=== PATIENT | male | born 1940 | race Caucasian/White ===

== ENCOUNTER 2019-09-17 09:31 | Inpatient (IN) ==
[2019-09-17] MEDS ORDERED: CLOPIDOGREL 300 MG TABLET PO STA (09:39)
[2019-09-17] MEDS ORDERED: HEPARIN 5,000 UNIT/1 ML VIAL IV ONE (09:39)
[2019-09-17] MEDS ORDERED: ASPIRIN 325 MG TABLET PO STA (09:39)
[2019-09-17] MEDS ORDERED: NITROGLYCERIN SL 0.4 MG TABLET SL PRN (09:39)
[2019-09-17] MEDS ORDERED: METOPROLOL TARTRATE 5 MG/5 ML VIAL IV STA (09:39)
[2019-09-17 09:42] VITALS: BP 144/110
[2019-09-17] MEDS ORDERED: CLOPIDOGREL 75 MG TABLET ONE (09:42)
[2019-09-17 09:45] LABS: Basophils # 0.1 10*3/uL (0.0-0.2); Basophils % 0.3 % (0.0-0.8); Eosinophils # 0.1 10*3/uL (0.0-0.87); Eosinophils % 0.6 % (0.00-10.9); Hematocrit 36.8 VOL% (42.0-52.0); Hemoglobin 12.1 GM/DL (14.0-18.0); Immature Granulocytes % 0.6 %; Immature Granulocytes Absolute 0.08 #; Lymphocytes # 2.3 10*3/uL (1.4-4.0); Lymphocytes % 15.7 % (21.2-54.2); Mean Corpuscular HGB Conc 32.9 GM/DL (32-36); Mean Corpuscular Volume 96.8 FL (87-102); Mean Platelet Volume 11.7 FL (9.6-12.0); Neutrophils % 72.8 % (38.7-73.9); Platelet Count 186 T/CUMM (130-400); Red Cell Distribution Width 12.9 % (9.3-17.3); White Blood Count 14.4 T/CUMM (4-12)
[2019-09-17] MEDS ORDERED: MIDAZOLAM 2 MG/2 ML VIAL ONE (09:52)
[2019-09-17] MEDS ORDERED: NITROGLYCERIN DRIP 50 MG/250 ML BOTTLE IV ONE (09:52)
[2019-09-17] MEDS ORDERED: fentaNYL 100 MCG/2 ML VIAL ONE (09:53)
[2019-09-17] MEDS ORDERED: LIDOCAINE 1% 20 ML VIAL ONE (09:53)
[2019-09-17] MEDS ORDERED: HEPARIN/NACL 0.9% 2 UNITS/ML 1,500 ML IV ONE (09:53)
[2019-09-17] MEDS ORDERED: HEPARIN 5,000 UNIT/1 ML VIAL ONE (09:53)
[2019-09-17 09:54] LABS: PT Patient Result 10.4 SECS (9.6-12.2); Partial Thromboplastin Time 26.1 SECS (20.8-36.0)
[2019-09-17] MEDS ORDERED: HEPARIN 5,000 UNIT/1 ML VIAL IV STA (10:08)
[2019-09-17] MEDS ORDERED: NOREPINEPHRINE 4 MG/4 ML VIAL IV ONE (10:13)
[2019-09-17 10:17] LABS: Calcium 8.7 MG/DL (8.5-10.1); Osmolality,Calculated 288.3 MOS/KG (273-304)
[2019-09-17] MEDS ORDERED: HEPARIN DRIP 25,000 UNITS/500 ML PREMIX IV ONE (10:54)
[2019-09-17] MEDS ORDERED: HEPARIN DRIP 25,000 UNITS/500 ML PREMIX IV SCH (11:50)
[2019-09-17] MEDS ORDERED: NOREPINEPHRINE 8 MG in SODIUM CHLORIDE 0.9% 242 ML IV PRN (11:50)
[2019-09-17] MEDS ORDERED: ETOMIDATE 20 MG/10 ML VIAL IV ONE ×2 (12:28→12:31)
[2019-09-17] MEDS ORDERED: VECURONIUM 10 MG VIAL IV ONE ×2 (12:28→12:31)
[2019-09-17] MEDS ORDERED: EPINEPHrine 1 MG/10 ML SYRINGE ONE ×3 (12:30→12:50)
[2019-09-17] MEDS ORDERED: SODIUM BICARBONATE 50 MEQ/50 ML SYRINGE IV ONE (12:50)
== END 2019-09-17 15:15 | disposition expired | DRG 272 ==
LOC: N.ED 09:31 → N.CC 09:55 → N.EDINP 10:03 → N.CC 10:58
PROVIDERS: ADMIT Internal Medicine Cardiovascular Disease; ATTEND Internal Medicine Cardiovascular Disease
PROC: CLCCHCL (ICD-10-PCS; 2019-09-17 10:45)